=== PATIENT | female | born 1980 | race Caucasian/White ===

== ENCOUNTER 2018-06-03 07:43 | Outpatient (CLI) | payer OTHER ==
--- NOTE | 2018-06-03 12:43 | NM ---
HEPATOBILIARY SCAN: HISTORY: A 37-year-old female with epigastric abdominal pain. COMPARISON: None. TECHNIQUE: A hepatobiliary scan was performed after the administration of 5.1 millicuries of technetium 99m mebr ofenin. FINDINGS: Prompt uptake of the radiopharmaceutical by the liver is seen. Biliary activity is seen within 15 mi nutes. Gallbladder activity is seen within 15 minutes. Bowel activity is seen within 30 minutes. A gallbladder ejection fraction was estimated after administration of 8 oz of Ensure p.o. This was e stimated at 42%. IMPRESSION: Decreased gallbladder ejection fraction may be seen with gallbladder dyskinesia. POS: [facility]
== END 2018-06-03 07:44 | disposition home or self-care (01) ==
LOC: NM 07:43
PROVIDERS: ATTEND Internal Medicine
DX: R11.2 Nausea with vomiting, unspecified (principal); R10.13 Epigastric pain
CPT/HCPCS: 78227; A9537

== ENCOUNTER 2018-06-18 10:25 | Outpatient (CLI) | payer OTHER ==
[2018-06-18 11:04] LABS: #Basophils 0.1 thou/uL (0.0-0.2); #Eosinphils 0.2 thou/uL (0.0-0.7); #Lymphocytes 2.8 thou/uL (1.20-3.40); #Monocytes 0.5 thou/uL (0.11-0.59); #Neutrophils 5.1 thou/uL (1.40-6.50); %Basophils 0.7 % (0.0-1.0); %Eosinophils 1.9 % (0.0-10.0); %Lymphocytes 32.1 % (21.0-51.0); %Monocytes 5.8 % (0.0-10.0); %Neutrophils 59.6 % (42.0-75.0); Hemoglobin 13.6 g/dL (12.0-16.0); Mean Corpuscular Hemoglobin 30.3 pg (27.0-31.0); Mean Corpuscular Volume 91.9 fL (78.0-98.0); Mean Platelet Volume 8.2 fL (7.4-10.4); Platelet Count 299 thou/uL (130-400); RBC Distribution Width 12.8 % (11.5-14.5); Red Blood Cell (RBC) Count 4.47 mill/uL (4.20-5.40); White Blood Cell (WBC) Count 8.6 thou/uL (4.8-10.8)
[2018-06-18 11:30] LABS: ALT (SGPT) 17 U/L (8-55); AST (SGOT) 13 U/L (5-34); Albumin 3.9 g/dL (3.5-5.0); Alkaline Phosphatase 65 U/L (40-150); Anion Gap 9 mmol/L (10-20); BUN (Urea Nitrogen) 11 mg/dL (7.0-18.7); Bilirubin, Direct 0.2 mg/dL (0.1-0.3); Bilirubin, Total 0.5 mg/dL (0.2-1.2); Calc. Creatinine Clearance 0 mL/min (70-130); Calcium 8.7 mg/dL (7.8-10.44); Carbon Dioxide 26 mmol/L (22-29); Chloride 105 mmol/L (98-107); Estimated GFR-MDRD 81; Globulin 3.1 g/dL (2.4-3.5); Glucose 85 mg/dL (70-105); Potassium 4.1 mmol/L (3.5-5.1); Sodium 136 mmol/L (136-145)
== END 2018-06-18 10:26 | disposition home or self-care (01) ==
LOC: LABBT 10:25
PROVIDERS: ATTEND Surgery
DX: Z01.812 Encounter for preprocedural laboratory examination (principal); K81.1 Chronic cholecystitis
CPT/HCPCS: 80053; 80076; 85025

== ENCOUNTER 2018-06-22 06:20 | Day surgery (SDC) | payer OTHER ==
[2018-06-18 10:49] VITALS: BMI 34.3
[2018-06-22] MEDS ORDERED: Fentanyl 100 MCG/2 ML VIAL ONE ×2 (06:43→08:36)
[2018-06-22] MEDS ORDERED: Bupivacaine/Epinephrine 0.25% 30 ML VIAL ONE (07:03)
[2018-06-22] MEDS ORDERED: SUGAMMADEX SODIUM 200 MG/2 ML VIAL ONE (08:20)
--- NOTE | 2018-06-22 08:53 | OP ---
DATE OF PROCEDURE: 06/22/2018 PREOPERATIVE DIAGNOSIS: Chronic cholecystitis. SURGEON: Raúl Carrion M.D. PROCEDURE PERFORMED: Laparoscopic cholecystectomy. INDICATIONS: This is a 37-year-old female who has been having episodic midepigastric and right upper quadrant pain. Ultrasound negative. HIDA scan showed a low ejection fraction. FINDINGS: There were some mild adhesions to the gallbladder. PROCEDURE: After informed consent was obtained, the patient was taken to the operating room and give n general endotracheal anesthesia. She was placed in the supine position. The abdomen was prepped a nd draped in usual fashion. Local anesthesia infiltrated subcutaneously and deep. A subumbilical in cision was performed. The subcu divided sharply. The fascia grasped and 2 stay sutures of 0 Vicryl placed to either side of midline. Midline incised. Digital palpation revealed no local adhesions. A blunt 10-12 mm trocar inserted. Pneumoperitoneum was created to a pressure of 15 mmHg. Zero degre e laparoscope inserted under direct vision, three 5 mm ports placed subcostally. Gallbladder grasped and advanced superiorly. Peritoneum lysed distally revealed small cystic duct. There were some adh esions. These were taken down. Cystic duct, cystic artery and critical view were dissected out. Th e artery and duct were triply ligated with Hemoclips and divided. The gallbladder was removed from i ts fossa utilizing electrocautery, removed from the abdomen through the umbilical port. Hemostasis w as assured. Trocars and retractors removed. The fascia closed with interrupted 0 Vicryl suture. Th e skin closed with interrupted 4-0 Rapide. Steri-Strips applied. Sterile bandage applied. The lenin ent tolerated the procedure well and was transferred to recovery in good condition. Sponge and needl e count verified correct x2.
[2018-06-22] MEDS ORDERED: Lidocaine 1% PF 5 ML VIAL ONE (12:31)
[2018-06-22] MEDS ORDERED: PROPOFOL 200 MG/20 ML VIAL ONE (12:31)
[2018-06-22] MEDS ORDERED: Ketorolac Tromethamine 30 MG/ML VIAL ONE (12:31)
[2018-06-22] MEDS ORDERED: Ondansetron HCl/PF 4 MG/2 ML Vial ONE (12:31)
[2018-06-22] MEDS ORDERED: Glycopyrrolate 0.2 MG/ML 5 ML SYRINGE ONE (12:31)
[2018-06-22] MEDS ORDERED: Dexamethasone 20 MG/5 ML VIAL ONE (12:31)
== END 2018-06-22 10:05 | disposition home or self-care (01) ==
LOC: SDC 06:20
PROVIDERS: ATTEND Surgery
PROC: 0FT44ZZ Resection of Gallbladder, Percutaneous Endoscopic Approach (ICD-10-PCS; principal; 2018-06-22)
DX: K81.1 Chronic cholecystitis (principal); Z88.0 Allergy status to penicillin
CPT/HCPCS: 88304; 96374; J3010

== ENCOUNTER 2019-12-07 17:06 | Emergency (ER) | payer OTHER ==
[2019-12-07 17:49] LABS: #Lymphocytes 0.9 thou/uL (1.20-3.40); #Monocytes 0.3 thou/uL (0.11-0.59); %Basophils 0.1 % (0.0-1.0); %Eosinophils 0.1 % (0.0-10.0); %Lymphocytes 8.4 % (21.0-51.0); %Monocytes 2.9 % (0.0-10.0); %Neutrophils 88.7 % (42.0-75.0); Hemoglobin 14.3 g/dL (12.0-16.0); Mean Corpuscular Hemoglobin 30.9 pg (27.0-31.0); Mean Corpuscular Volume 90.8 fL (78.0-98.0); Platelet Count 294 thou/uL (130-400); RBC Distribution Width 12.3 % (11.5-14.5); Red Blood Cell (RBC) Count 4.62 mill/uL (4.20-5.40); White Blood Cell (WBC) Count 11.3 thou/uL (4.8-10.8)
[2019-12-07 17:57] LABS: BHCG - Serum Negative (NEGATIVE); Pregs Control Background? CLEAR/WHITE (CLR/WHITE); Pregs Control Bar Appear? YES (CONTROL BAR)
[2019-12-07 18:11] LABS: ALT (SGPT) 28 U/L (8-55); AST (SGOT) 18 U/L (5-34); Alkaline Phosphatase 82 U/L (40-110); Anion Gap 13 mmol/L (10-20); BUN (Urea Nitrogen) 9 mg/dL (7.0-18.7); Bilirubin, Total 0.6 mg/dL (0.2-1.2); Calc. Creatinine Clearance 0 mL/min (70-130); Carbon Dioxide 21 mmol/L (22-29); Chloride 106 mmol/L (98-107); Estimated GFR-MDRD 78; Glucose 115 mg/dL (70-105); Lipase 10 U/L (8-78); Potassium 3.5 mmol/L (3.5-5.1); Sodium 136 mmol/L (136-145)
[2019-12-07] MEDS ORDERED: Ondansetron ODT 4 MG TAB ONE (19:21)
== END 2019-12-07 21:07 | disposition left against medical advice (07) ==
LOC: ERS 17:06
DX: Z53.21 Procedure and treatment not carried out due to patient leaving prior to being seen by health care provider (principal)
CPT/HCPCS: 36415; 80053; 83690; 84703; 85025; Q0162

== ENCOUNTER 2020-12-25 07:13 | Day surgery (SDC) | payer BC ==
[2020-12-21 11:07] VITALS: BMI 33.5
[2020-12-25 08:02] VITALS: BP 122/58; TEMP 98
== END 2020-12-25 10:05 | disposition home or self-care (01) ==
LOC: RAD 07:13
PROVIDERS: ATTEND Surgery
PROC: B01B1ZZ Fluoroscopy of Spinal Cord using Low Osmolar Contrast (ICD-10-PCS; principal; 2020-12-25)
DX: M47.26 Other spondylosis with radiculopathy, lumbar region (principal); M43.16 Spondylolisthesis, lumbar region; M41.84 Other forms of scoliosis, thoracic region; M41.86 Other forms of scoliosis, lumbar region; M47.22 Other spondylosis with radiculopathy, cervical region; F17.200 Nicotine dependence, unspecified, uncomplicated; E66.9 Obesity, unspecified; Z68.33 Body mass index [BMI] 33.0-33.9, adult; Z79.52 Long term (current) use of systemic steroids; Z79.899 Other long term (current) drug therapy; Z88.0 Allergy status to penicillin; Z88.8 Allergy status to other drugs, medicaments and biological substances; Z91.040 Latex allergy status; Z91.048 Other nonmedicinal substance allergy status; Z98.890 Other specified postprocedural states
CPT/HCPCS: 62304; 72040; 72070; 72120; 72132

== ENCOUNTER 2021-01-22 11:27 | Outpatient (CLI) | payer BC ==
[2021-01-22 12:18] LABS: Hemoglobin 13.5 g/dL (12.0-15.5); Mean Corpuscular HGB CONC 32.6 g/dL (32.0-36.0); Mean Corpuscular Hemoglobin 29.3 pg (27.0-33.0); Mean Corpuscular Volume 89.8 fl (81.6-98.3); Mean Platelet Volume 10.5 fl (7.4-10.4); Platelet Count 326 10x3/uL (150-450); RBC Distribution Width 14.3 % (11.5-14.5); Red Blood Cell (RBC) Count 4.61 10x6/uL (3.90-5.03); White Blood Cell (WBC) Count 10.2 10x3/uL (3.5-10.5)
[2021-01-22 12:29] LABS: Anion Gap 12 mmol/L (10-20); BUN (Urea Nitrogen) 12 mg/dL (7.0-18.7); Calc. Creatinine Clearance 0 mL/min (70-130); Calcium 8.3 mg/dL (7.8-10.44); Carbon Dioxide 24 mmol/L (22-29); Chloride 104 mmol/L (98-107); Glucose 114 mg/dL (70-105); Potassium 3.7 mmol/L (3.5-5.1); Sodium 136 mmol/L (136-145)
[2021-01-22 12:42] LABS: INR-International Normal Ratio 0.9; PTT 27.6 sec (22.0-33.0); Prothrombin Time 10.3 sec (9.5-12.1)
== END 2021-01-22 11:28 | disposition home or self-care (01) ==
LOC: LABBT 11:27
PROVIDERS: ATTEND Surgery
DX: Z01.818 Encounter for other preprocedural examination (principal); M43.16 Spondylolisthesis, lumbar region; M48.062 Spinal stenosis, lumbar region with neurogenic claudication
CPT/HCPCS: 80048; 85027; 85610; 85730; 86850; 86900; 86901; 87635; 93005; 93010; U0003; U0005

== ENCOUNTER 2021-01-25 08:05 | Day surgery (SDC) | payer BC ==
[2021-01-23 01:17] LABS: SARS-CoV-2 PCR by NAA Not Detected (NotDetected)
[2021-01-24 11:25] VITALS: BMI 34.4
[2021-01-25] MEDS ORDERED: Thrombin 5000 UNITS/5 ML VIAL ONE (09:01)
[2021-01-25] MEDS ORDERED: Fentanyl 100 MCG/2 ML VIAL ONE ×4 (09:06→15:18)
[2021-01-25] MEDS ORDERED: Midazolam HCl 2 mg/2 ml Vial ONE (09:12)
[2021-01-25] MEDS ORDERED: Levofloxacin 500 mg/D5W 100 ml Premix Bag ONE (09:20)
[2021-01-25] MEDS ORDERED: Clindamycin/D5W 900 mg/50 ml Premix Bag ONE (09:20)
[2021-01-25] MEDS ORDERED: Rocuronium Bromide 10 MG/ML (10ML VIAL) ONE (09:37)
[2021-01-25] MEDS ORDERED: PHENYLEPHRINE-NS 100 MCG/ML 10 ML SYRINGE ONE (09:37)
[2021-01-25] MEDS ORDERED: Dexamethasone 20 MG/5 ML VIAL ONE (09:37)
[2021-01-25] MEDS ORDERED: Lidocaine 1% PF 5 ML VIAL ONE (09:37)
[2021-01-25] MEDS ORDERED: ePHEDrine Sulfate 50 MG/10 ML VIAL ONE (09:37)
[2021-01-25] MEDS ORDERED: Ketorolac Tromethamine 30 MG/ML VIAL ONE (09:37)
[2021-01-25] MEDS ORDERED: Ondansetron PF 4 MG/2 ML Vial ONE (09:37)
[2021-01-25] MEDS ORDERED: PROPOFOL 200 MG/20 ML VIAL ONE (09:37)
[2021-01-25] MEDS ORDERED: HYDROmorphone 2 MG/ML VIAL ONE (12:30)
[2021-01-25] MEDS ORDERED: Rocuronium Bromide 50 MG/5 ML VIAL ONE (12:45)
[2021-01-25] MEDS ORDERED: SUGAMMADEX SODIUM 200 MG/2 ML VIAL ONE (13:40)
[2021-01-25] MEDS ORDERED: traMADol HCl 50 MG TAB PO PRN (14:34)
[2021-01-25] MEDS ORDERED: Acetaminophen 325 MG TAB PO PRN (14:34)
[2021-01-25] MEDS ORDERED: Morphine 2 MG/ML VIAL SLOW IVP PRN (14:34)
[2021-01-25] MEDS ORDERED: Famotidine 20 MG TAB PO PRN (14:41)
[2021-01-25] MEDS ORDERED: Promethazine HCl 25 MG/ML VIAL SLOW IVP PRN (14:48)
[2021-01-25] MEDS ORDERED: Ondansetron HCl/PF 4 MG/2 ML Vial IVP PRN (14:48)
[2021-01-25] MEDS ORDERED: Meperidine HCl/PF 25 MG/ML VIAL SLOW IVP PRN (14:48)
[2021-01-25] MEDS ORDERED: HYDROmorphone 2 MG/ML VIAL SLOW IVP PRN (14:48)
[2021-01-25] MEDS: Morphine 4 MG/ML VIAL SLOW IVP PRN ×2 (16:28→17:52)
[2021-01-25] MEDS: Sodium Chloride 0.9% 1,000 ML IV SCH (16:29)
[2021-01-25] MEDS: Diazepam 5 MG TAB PO PRN (17:14)
[2021-01-25] MEDS: Clindamycin/D5W 900 MG in Premix Bag 1 BAG IVPB SCH (17:15)
[2021-01-25] MEDS: HYDROcodone/Acetaminophen 7.5/325 mg Tablet PO PRN (19:19)
[2021-01-25] MEDS: Acetaminophen/Codeine 30-300mg Tablet PO PRN (22:06)
[2021-01-26] MEDS: HYDROcodone/Acetaminophen 7.5/325 mg Tablet PO PRN ×4 (01:23→20:05)
[2021-01-26] MEDS: Morphine 4 MG/ML VIAL SLOW IVP PRN ×5 (01:23→18:03)
[2021-01-26] MEDS: Clindamycin/D5W 900 MG in Premix Bag 1 BAG IVPB SCH ×3 (01:23→17:54)
[2021-01-26] MEDS: Diazepam 5 MG TAB PO PRN ×3 (02:59→23:03)
[2021-01-26] MEDS: Sodium Chloride 0.9% 1,000 ML IV SCH ×2 (04:22→17:53)
[2021-01-26] MEDS: Acetaminophen/Codeine 30-300mg Tablet PO PRN ×4 (05:55→23:30)
[2021-01-26 06:09] LABS: #Lymphocytes 1.7 thou/uL (1.20-3.40); #Monocytes 1.2 thou/uL (0.11-0.59); #Neutrophils 9.7 thou/uL (1.40-6.50); %Basophils 0.1 % (0.0-1.0); %Eosinophils 0.1 % (0.0-10.0); %Lymphocytes 13.5 % (21.0-51.0); %Monocytes 9.4 % (0.0-10.0); Hemoglobin 10.5 g/dL (12.0-16.0); Mean Corpuscular HGB CONC 32.5 g/dL (32.0-36.0); Mean Corpuscular Hemoglobin 30.3 pg (27.0-31.0); Mean Corpuscular Volume 93.1 fL (78.0-98.0); Mean Platelet Volume 8.4 fL (7.4-10.4); Platelet Count 248 thou/uL (130-400); RBC Distribution Width 13.2 % (11.5-14.5); Red Blood Cell (RBC) Count 3.45 mill/uL (4.20-5.40); White Blood Cell (WBC) Count 12.5 thou/uL (4.8-10.8)
[2021-01-26 06:30] LABS: Anion Gap 9 mmol/L (10-20); BUN (Urea Nitrogen) 6 mg/dL (7.0-18.7); Calc. Creatinine Clearance 153 mL/min (70-130); Calcium 7.9 mg/dL (7.8-10.44); Carbon Dioxide 26 mmol/L (22-29); Chloride 106 mmol/L (98-107); Glucose 97 mg/dL (70-105); Potassium 3.6 mmol/L (3.5-5.1); Sodium 137 mmol/L (136-145)
[2021-01-26] MEDS: Multivit, Therapeutic 1 TAB PO SCH (09:02)
[2021-01-26] MEDS ORDERED: Ondansetron ODT 8 MG TAB PO PRN (19:40)
[2021-01-26] MEDS ORDERED: Ondansetron HCl/PF 8 MG in Sodium Chloride 0.9% 50 ML IVPB PRN (19:41)
[2021-01-26] MEDS ORDERED: Promethazine 25 MG TAB PO PRN (19:42)
[2021-01-26] MEDS ORDERED: Promethazine HCl 25 MG in Sodium Chloride 0.9% 50 ML IVPB PRN (19:42)
[2021-01-27] MEDS: Clindamycin/D5W 900 MG in Premix Bag 1 BAG IVPB SCH ×2 (01:18→08:43)
[2021-01-27] MEDS: HYDROcodone/Acetaminophen 7.5/325 mg Tablet PO PRN ×3 (02:48→12:20)
[2021-01-27] MEDS: Acetaminophen/Codeine 30-300mg Tablet PO PRN (04:42)
[2021-01-27] MEDS: Sodium Chloride 0.9% 1,000 ML IV SCH (05:50)
[2021-01-27] MEDS: Diazepam 5 MG TAB PO PRN (06:48)
[2021-01-27] MEDS: Multivit, Therapeutic 1 TAB PO SCH (08:42)
[2021-01-27 13:22] VITALS: BP 89/57; TEMP 98.5
== END 2021-01-27 12:30 | disposition home or self-care (01) ==
LOC: SDC 08:05 → SURG B 14:34 → SDC 01-27 12:30
PROVIDERS: ATTEND Surgery
PROC: 0SG00AJ Fusion of Lumbar Vertebral Joint with Interbody Fusion Device, Posterior Approach, Anterior Column, Open Approach (ICD-10-PCS; principal; 2021-01-25)
PROC: 01NB0ZZ Release Lumbar Nerve, Open Approach (ICD-10-PCS; principal; 2021-01-25)
DX: M43.16 Spondylolisthesis, lumbar region (principal); M54.16 Radiculopathy, lumbar region; M48.061 Spinal stenosis, lumbar region without neurogenic claudication; Z88.0 Allergy status to penicillin; Z88.8 Allergy status to other drugs, medicaments and biological substances; Z91.040 Latex allergy status; Z91.048 Other nonmedicinal substance allergy status
CPT/HCPCS: 36415; 76000; 80048; 85025; 86850; 86900; 86901; 87635; C1713; J1100; J1170; J1885; J1956; J2250; J2270; J2405; J2704; J3010; J3370; J3490; Q0169; U0003; U0005

== ENCOUNTER 2021-03-07 08:12 | Outpatient (CLI) | payer BC | END 2021-03-07 08:13 | disposition home or self-care (01) | LOC: BICRAD 08:12 | PROVIDERS: ATTEND Physician Assistant | DX: M48.062 Spinal stenosis, lumbar region with neurogenic claudication (principal); M54.16 Radiculopathy, lumbar region; M43.16 Spondylolisthesis, lumbar region; Z98.1 Arthrodesis status | CPT/HCPCS: 72100 ==

== ENCOUNTER 2021-07-18 15:00 | Outpatient (CLI) | payer BC | END 2021-07-18 15:01 | disposition home or self-care (01) | LOC: BICMAMMO 15:00 | PROVIDERS: ATTEND Obstetrics & Gynecology | DX: Z12.31 Encounter for screening mammogram for malignant neoplasm of breast (principal); Z13.820 Encounter for screening for osteoporosis; M81.0 Age-related osteoporosis without current pathological fracture; M85.80 Other specified disorders of bone density and structure, unspecified site; Z79.890 Hormone replacement therapy | CPT/HCPCS: 77063; 77067; 77080 ==